=== PATIENT | female | born 1995 | race Caucasian/White ===

== ENCOUNTER 2018-08-03 14:24 | Emergency (ER) | payer OTHER ==
[~2018-08-03] VITALS: Ht 157.5 cm; Wt 68.0 kg
[2018-08-03] MEDS ORDERED: BACTRIM DS TAB1 EACH PO (18:05)
== END 2018-08-03 18:17 | disposition home or self-care (01) ==
LOC: ER 14:24
DX: N75.0 Cyst of Bartholin's gland (principal)

== ENCOUNTER 2019-05-30 11:37 | Emergency (ER) | payer OTHER ==
[~2019-05-30] VITALS: Ht 157.5 cm; Wt 68.0 kg
[~2019-05-30 11:37] MED LIST: BACTRIM DS TAB1 EACH PO
== END 2019-05-30 13:26 | disposition home or self-care (01) ==
LOC: ER 11:37
DX: N76.4 Abscess of vulva (principal)

== ENCOUNTER 2019-10-10 20:39 | Emergency (ER) | payer OTHER ==
[~2019-10-10] VITALS: Ht 157.5 cm; Wt 65.8 kg
== END 2019-10-10 23:35 | disposition home or self-care (01) ==
LOC: ER 20:39
DX: N75.1 Abscess of Bartholin's gland (principal); N75.8 Other diseases of Bartholin's gland

== ENCOUNTER 2020-01-14 18:26 | Emergency (ER) | payer OTHER ==
[~2020-01-14] VITALS: Ht 157.5 cm; Wt 58.1 kg
== END 2020-01-14 21:06 | disposition home or self-care (01) ==
LOC: ER 18:26
DX: K61.0 Anal abscess (principal)

== ENCOUNTER 2020-03-13 06:33 | Day surgery (SDC) | payer OTHER ==
[2020-03-13] MEDS ORDERED: PERCOCET 5-3251 EACH PO (13:10)
[2020-03-13] MEDS ORDERED: HIBICLENS118 ML TOP (13:11)
== END 2020-03-13 20:30 | disposition home or self-care (01) ==
LOC: CIR.AMB 06:33
PROVIDERS: ATTEND Surgery
DX: K60.3 Anal fistula (principal); K60.1 Chronic anal fissure; Z20.828 Contact with and (suspected) exposure to other viral communicable diseases

== ENCOUNTER 2020-05-24 12:15 | Emergency (ER) | payer OTHER ==
[~2020-05-24] VITALS: Ht 157.5 cm; Wt 59.0 kg
[~2020-05-24 12:15] MED LIST changes: +HIBICLENS118 ML TOP; +PERCOCET 5-3251 EACH PO
[2020-05-24] MEDS ORDERED: CIPRO500 MG PO (13:11)
== END 2020-05-24 13:28 | disposition home or self-care (01) ==
LOC: ER 12:15
DX: N39.0 Urinary tract infection, site not specified (principal)

== ENCOUNTER 2020-09-02 05:53 | Day surgery (SDC) | payer OTHER ==
[~2020-09-02 05:53] MED LIST changes: +CIPRO500 MG PO
[2020-09-02] MEDS ORDERED: PERCOCET 5-3251 EACH PO (09:08)
[2020-09-02] MEDS ORDERED: KETO10TA2 PO (09:08)
[2020-09-02] MEDS ORDERED: NEURONTIN300 MG PO (09:08)
== END 2020-09-02 13:35 | disposition home or self-care (01) ==
LOC: CIR.AMB 05:53
PROVIDERS: ATTEND Surgery
DX: K60.3 Anal fistula (principal); Z20.828 Contact with and (suspected) exposure to other viral communicable diseases

== ENCOUNTER 2022-09-04 20:09 | Emergency (ER) | payer OTHER ==
[~2022-09-04] VITALS: Ht 157.5 cm; Wt 65.8 kg
[~2022-09-04 20:09] MED LIST changes: +KETO10TA2 PO; +NEURONTIN300 MG PO
== END 2022-09-04 22:49 | disposition home or self-care (01) ==
LOC: ER 20:09
DX: J06.9 Acute upper respiratory infection, unspecified (principal); Z20.822 Contact with and (suspected) exposure to COVID-19